=== PATIENT | female | born 1965 | race Caucasian/White ===

== ENCOUNTER 2021-10-12 18:17 | Emergency (ER) | payer MEDICAID, SELFPAY ==
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
[2021-10-12 18:24] VITALS: PULSE 75; RESP 16; TEMP 37.1; O2SAT 97; BMI 26.6
--- NOTE | 2021-10-12 18:54 | XRR_ITS ---
PROCEDURE INFORMATION: Exam: XR Left Ankle Exam date and time: 10/12/2021 7:08 PM Age: 56 years old Clinical indication: Injury or trauma; Fall; Blunt trauma; Ankle; Left; Additional info: Fall, pain TECHNIQUE: Imaging protocol: XR Left ankle. Views: 3 or more views. COMPARISON: No relevant prior studies available. FINDINGS: Bones/joints: Transverse fracture of the medial malleolus with up to 1 cm of inferior displacement and medial/posterior angulation of the distal fracture fragment. A comminuted fracture of the posterior malleolus with 1.1 cm of posterior displacement and 5 mm of superior displacement of the fracture. Oblique fracture of the lateral malleolus with posterior displacement of 1 shaft with and approximately 2 cm of override with mild angulation of the distal fracture fragment. Posterior dislocation of the talus with respect to the tibia with approximately 9 mm of override. There is an ununited os trigonum of the talus. Findings suggesting prior osteotomy in the distal 1st metatarsal. Soft tissues: Moderate soft tissue swelling over the lateral malleolus. No radiopaque foreign body. XR/XR ankle LT min 3V* [id number] IMPRESSION: 1. Comminuted, displaced trimalleolar fracture of the left ankle. 2. Posterior dislocation of the talus with respect to the tibia with approximately 9 mm of override. 3. Moderate soft tissue swelling over the lateral malleolus.
--- NOTE | 2021-10-12 18:54 | XRR_ITS ---
PROCEDURE INFORMATION: Exam: XR Left Knee Exam date and time: 10/12/2021 7:11 PM Age: 56 years old Clinical indication: Injury or trauma; Fall; Blunt trauma; Knee; Left; Additional info: Fall, pain TECHNIQUE: Imaging protocol: XR Left knee. Views: 3 views. COMPARISON: No relevant prior studies available. FINDINGS: Bones/joints: No acute fracture. No dislocation. Normal bone mineralization. No joint effusion. Joint spaces are maintained. Soft tissues: No soft tissue swelling. No radiopaque foreign body. XR/XR knee LT 3V* [id number] IMPRESSION: Negative radiographs of the left knee. Followup imaging recommended in 7-14 days if clinical concern for fracture persists.
--- NOTE | 2021-10-12 18:54 | XRR_ITS ---
PROCEDURE INFORMATION: Exam: XR Left Foot Exam date and time: 10/12/2021 7:06 PM Age: 56 years old Clinical indication: Injury or trauma; Fall; Blunt trauma; Foot; Left; Prior surgery; Surgery date: 6+ months; Surgery type: Bunion; Additional info: Fall, pain TECHNIQUE: Imaging protocol: XR Left foot. Views: 3 or more views. COMPARISON: No relevant prior studies available. FINDINGS: Bones/joints: Comminuted, displaced trimalleolar fracture of the left ankle with posterior dislocation at the tibiotalar joint. Changes suggesting prior osteotomy in the 1st metatarsal. Normal bone mineralization. Soft tissues: Moderate soft tissue swelling over the lateral malleolus. No radiopaque foreign body. XR/XR foot LT min 3V* [id number] IMPRESSION: 1. Comminuted, displaced trimalleolar fracture of the left ankle with posterior dislocation at the tibiotalar joint. Please refer to dictation for left ankle radiographs dated 10/03/2021 for full description of these findings. 2. Moderate soft tissue swelling over the lateral malleolus.
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
[2021-10-12 20:07] VITALS: RESP 22
[2021-10-12] MEDS: fentaNYL 50 mcg/mL INJ 2mL IVP ×2 (20:07→21:29)
[2021-10-12] MEDS: propofol 10 mg/mL SDV 20 mL IVP (20:25)
--- NOTE | 2021-10-12 20:46 | XRR_ITS ---
PROCEDURE INFORMATION: Exam: XR Left Ankle Exam date and time: 10/12/2021 8:52 PM Age: 56 years old Clinical indication: Other: Post reduction; Additional info: Post reduction/splinting TECHNIQUE: Imaging protocol: XR Left ankle. Views: 1 or 2 views. COMPARISON: CR (LOW EXM, ) 10/12/2021 7:08 PM FINDINGS: Bones/joints: Interval placement of overlying cast material that can obscure fine bony detail. Interval closed reduction of the trimalleolar fracture at the left ankle. There is significant improvement of alignment with mild residual displacement at the medial, posterior, and lateral malleoli. There is also resolution of the tibial talar joint dislocation. Normal bone mineralization. Stable changes consistent with prior osteotomy in the visualized 1st metatarsal. Soft tissues: Moderate soft tissue swelling over the lateral malleolus. Findings are stable. No radiopaque foreign body. XR/XR ankle LT 2V [id number] IMPRESSION: 1. Interval closed reduction of the trimalleolar fracture at the left ankle. There is significant improvement of alignment with mild residual displacement at the medial, posterior, and lateral malleoli. There is also resolution of the tibial talar joint dislocation. 2. Moderate soft tissue swelling over the lateral malleolus. Findings are stable.
[2021-10-12 21:29] VITALS: RESP 16
[2021-10-12] MEDS: ondansetron 2 mg/ML SDV 2 mL 4 MG IVP (21:29)
[2021-10-12] MEDS: sodium chloride 0.9% 1,000 ML 50 ML IV (21:30)
--- NOTE | 2021-10-12 21:45 | PC.NURSE ---
Closed Reduction concent signed. Timeout at 2024 40mg of propofol @ 2025 Vitals @ 2027: HR-73, O2-95, BP- 113/84 20mg of propofol @ 2027 20mg of propofol @ 2028 Vitals @ 2030: HR-69, O2 100 on a nonrebreather, BP-130/74 Xray called to comfirm placement-not in place 20mg propofol @ 2033 Vitals @ 2033: HR-67, O2-100 nonrebreather, BP-120/88 20mg of propofol @ 2037 40mg of propofol @2038 Vitals 2038: HR- 73, O2-100 nonrebreather, BP - 115/85 Xray confirmed and in place @ 2039 Splint placed @ 2041 Vitals @ 2041: HR - 69, O2- 98 NC 2L, BP-122/83 Pt awake and talking at 2053 Vitals @ 2053: HR-73, O2 - 100 NC 2L, BP-90/73 Pt more alert A&Ox3 @ 2101 Vitals @ 2101 HR-75, O2 99 NC 2L, BP- 127/73
[2021-10-12] MEDS: acetaminophen 500 mg Tablet 1000 MG PO (21:50)
[2021-10-12] MEDS: methocarbamol 750 mg Tablet PO (21:50)
[2021-10-12 22:27] VITALS: BP 125/78; PULSE 73; RESP 17; O2SAT 97
[2021-10-12] MEDS: oxyCODONE 5 mg IR Tab/Cap 10 MG PO (22:57)
[2021-10-12] MEDS: ondansetron 4 MG Tablet 8 MG PO (22:57)
[2021-10-12 23:35] VITALS: BP 119/78; PULSE 69; RESP 17; O2SAT 98
== END 2021-10-12 23:42 | disposition home or self-care (01) ==
PROVIDERS: Emergency Provider Emergency Medicine
DX: S82.852A Displaced trimalleolar fracture of left lower leg, initial encounter for closed fracture (principal); S93.05XA Dislocation of left ankle joint, initial encounter; V86.99XA Unspecified occupant of other special all-terrain or other off-road motor vehicle injured in nontraffic accident, initial encounter
CPT/HCPCS: 27818; 27840; 70450; 73562; 73600; 73610; 73630; 96361; 96374; 96375; 96376; 99152; 99284; J2405; J2704; J3010; J7030; Q0162